=== PATIENT | male | born 1930 | race Caucasian/White ===

== ENCOUNTER 2017-05-12 18:31 | Emergency (ER) | payer OTHER, BC ==
[~2017-05-12] VITALS: Ht 167.6 cm; Wt 63.0 kg
[~2017-05-12 18:31] MED LIST: ALDOMET500 MG PO; BABY ASPIRIN81 M1 PO; BENICAR/HCTZ; BYSTOLIC10 MG PO; CHROMIUM PIC1000 MCG PO; CO Q-10100 MG PO; DIOVAN160 MG PO; FENOFIBRATE54 M1 PO; FENTANYL1 EAC1 TD; FISH OIL CONC1 EACH PO; HYDROCHLOROTHIA25 MG PO; LIPITOR20 MG PO; MULTI-VITAMIN1 EAC4 PO; PERCOCET 10-321 EACH PO; TOPROL; TYLENOL650 MG PO; [UNRECOGNIZED DRUG - OTHER]
[2017-05-12 22:10] VITALS: BP 146/64
== END 2017-05-12 22:11 | disposition home or self-care (01) ==
LOC: EXP 18:31 → EME 18:31 → EXP 22:11
PROC: 0HQFXZZ Repair Right Hand Skin, External Approach (ICD-10-PCS; principal; 2017-05-12)
DX: S61.411A Laceration without foreign body of right hand, initial encounter (principal); Y93.H2 Activity, gardening and landscaping; W25.XXXA Contact with sharp glass, initial encounter; N40.0 Benign prostatic hyperplasia without lower urinary tract symptoms; I10 Essential (primary) hypertension
CPT/HCPCS: 73130; 99281; 99284